=== PATIENT | male | born 1985 | race Caucasian/White ===

== ENCOUNTER 2021-03-31 01:04 | Emergency (ER) | payer MEDICAID ==
[~2021-03-31] VITALS: Ht 175.3 cm; Wt 92.5 kg
[2021-03-31 01:14] VITALS: BP_SYST 144
--- NOTE | 2021-03-31 01:27 | NUR ---
Patient to ER bed 1. Side rails up.
--- NOTE | 2021-03-31 01:27 | NUR ---
Patient BIB by family. C/O left hand laceration x today. Patient reported, accidently cut himself while was working ~ 00.30 AM, Reported his [employer] supervisor before came to ER. A/O,X4, left hand pain, pain rate 2/10, 3.5 cm laceration wound, bleeding control.
--- NOTE | 2021-03-31 01:28 | NUR ---
LONNIE Soriano at bedside examining patient.
[2021-03-31] MEDS ORDERED: DIPH-TET-PERTUS Vaccine 0.5 ML VIAL (ADACEL) I.M. ONE (01:30)
[2021-03-31] MEDS ORDERED: LIDOCAINE 1%, 20 ML MDV 20 ML ONE (01:34)
--- NOTE | 2021-03-31 01:37 | NUR ---
X-ray at bedside.
--- NOTE | 2021-03-31 02:11 | NUR ---
Patient has a 3.5 cm laceration to left hand. Dr. Soriano applied sutures using sterile technique. Edges well approximated. Site cleansed with NSS and Betadine. Dressing of NON-Adhesive applied to site. No bleeding noted. Pt tolerated well.
[2021-03-31] MEDS ORDERED: BACITRACIN 1 GM OINT TP ONE (02:15)
[2021-03-31 02:30] VITALS: BP_SYST 144
--- NOTE | 2021-03-31 02:30 | NUR ---
Patient given written and verbal discharge instructions and verbalizes understanding. ER MD discussed with patient the results and treatment provided. Patient in stable condition. ID arm band removed. No Rx given. Patient educated on pain management and to follow up with PMD. Pain Scale 0/10. Opportunity for questions provided and answered.
== END 2021-03-31 02:30 | disposition home or self-care (01) ==
LOC: SED 01:04
DX: S61.412A Laceration without foreign body of left hand, initial encounter (principal); W45.8XXA Other foreign body or object entering through skin, initial encounter; Y93.89 Activity, other specified; Y92.89 Other specified places as the place of occurrence of the external cause; Y99.8 Other external cause status
CPT/HCPCS: 12002; 73120; 90471; 90715; 99283; J2001